=== PATIENT | female | born 1980 | race Caucasian/White ===

== ENCOUNTER 2020-03-28 07:00 | Outpatient (CLI) | payer OTHER ==
[2020-03-28 20:01] LABS: BASOPHILS % (AUTO) 0.6 %; EOSINOPHILS # (AUTO) 0.2 10^3/uL (0.0-0.7); EOSINOPHILS % (AUTO) 2.6 %; HGB - HEMOGLOBIN 13.7 g/dL (12.0-16.0); MEAN CORPUSCULAR VOLUME 97.1 fL (81.0-99.0); MEAN PLATELET VOLUME 10.2 fL (7.9-10.8); MONOCYTES # (AUTO) 0.3 10^3/uL (0.0-1.0); NEUTROPHILS # (AUTO) 3.7 10^3/uL (1.5-6.6); NEUTROPHILS % (AUTO) 59.6 %; PLT - PLATELET COUNT 232 10^3/uL (130-450); RED BLOOD COUNT 4.15 10^6/uL (4.20-5.40); RED CELL DISTRIBUTION WIDTH 11.9 % (12.0-15.0); WHITE BLOOD COUNT 6.2 x10^3/uL (4.8-10.8)
[2020-03-28 20:19] LABS: ALBUMIN 4.5 g/dL (3.2-5.5); ALBUMIN/GLOBULIN RATIO 1.7 (1.0-2.2); ALKALINE PHOSPHATASE 39 IU/L (42-121); ALT ALANINE AMINOTRANSFERASE 26 IU/L (10-60); AST ASPARTATE AMINOTRANSFERASE 30 IU/L (10-42); BILIRUBIN,TOTAL 0.5 mg/dL (0.2-1.0); BUN - BLOOD UREA NITROGEN 13 mg/dL (6-20); CALCIUM 9.5 mg/dL (8.5-10.3); CARBON DIOXIDE - CO2 25 mmol/L (21-32); CHLORIDE 105 mmol/L (101-111); CHOL/HDL RATIO 2.9 (<4.4); CHOLESTEROL 205 mg/dL; CREATININE 0.7 mg/dL (0.4-1.0); GLUCOSE 82 mg/dL (70-100); HDL CHOLESTEROL 71 mg/dL; LDL CHOLESTEROL,CALCULATED 97 mg/dL; LDL/HDL RATIO 1.4 (<4.4); SODIUM 138 mmol/L (135-145); TOTAL PROTEIN 7.2 g/dL (6.7-8.2); VLDL CHOLESTEROL 37 mg/dL
== END 2020-03-28 23:59 | disposition home or self-care (01) ==
LOC: DI.S 07:00
PROVIDERS: ATTEND Nurse Practitioner Family
DX: Z00.00 Encounter for general adult medical examination without abnormal findings (principal); E55.9 Vitamin D deficiency, unspecified; E78.5 Hyperlipidemia, unspecified
CPT/HCPCS: 36415; 80053; 80061; 82306; 82728; 83721; 85025

== ENCOUNTER 2020-04-10 15:50 | Outpatient (CLI) | payer OTHER ==
--- NOTE | 2020-04-10 16:14 | XRAY Report ---
PROCEDURE: Pelvis 1 View INDICATIONS: LOOKING FOR IUD PLACEMENT TECHNIQUE: One view of the pelvis is obtained. COMPARISON: None. FINDINGS: No fracture nor osseous lesion. Mild bilateral hip joint space narrowing and periarticular osteophyte formation. Intrauterine device is present. IMPRESSION: Bilateral hip osteoarthritis. IUD is present. No acute fracture. No osseous lesion. If symptoms and/o r clinical suspicion for pathology continue, further assessment with repeat plain films, or advanced imaging (e.g., CT, MRI, or bone scan) is recommended for further assessment. Reviewed by: Irais Dickerson MD on 04/10/2020 4:13 PM [facility] Approved by: Irais Dickerson MD on 04/10/2020 4:13 PM PST Station ID: [id number]
== END 2020-04-10 15:51 | disposition home or self-care (01) ==
LOC: DI.S 15:50
PROVIDERS: ATTEND Nurse Practitioner Family
DX: Z30.431 Encounter for routine checking of intrauterine contraceptive device (principal); M16.0 Bilateral primary osteoarthritis of hip
CPT/HCPCS: 72170